=== PATIENT | female | born 1980 | race Caucasian/White ===

== ENCOUNTER 2018-02-07 11:08 | Inpatient (IN) ==
[2018-02-07 11:58] LABS: Basophils # 0.1 10*3/uL (0.0-0.2); Basophils % 0.2 % (0.0-0.8); Eosinophils # 0.2 10*3/uL (0.0-0.87); Eosinophils % 0.7 % (0.00-10.9); Immature Granulocytes % 0.9 %; Immature Granulocytes Absolute 0.22 #; Lymphocytes # 5.7 10*3/uL (1.4-4.0); Lymphocytes % 24.7 % (21.3-54.2); Mean Corpuscular HGB Conc 32.9 GM/DL (32-36); Mean Corpuscular Hemoglobin 31 PG (27-34); Mean Corpuscular Volume 94.4 FL (87-102); Mean Platelet Volume 11.4 FL (9.6-12.0); Monocytes # 1.6 10*3/uL (0.11-0.8); Monocytes % 6.7 % (1.7-12.7); Neutrophils # 15.5 10*3/uL (1.4-7.4); Neutrophils % 66.8 % (38.7-73.9); Platelet Count 259 T/CUMM (130-400); Red Cell Distribution Width 12.8 % (9.3-17.3); White Blood Count 23.2 T/CUMM (4-12)
[2018-02-07 12:07] LABS: Alanine Aminotransferase 15 U/L (13-56); Albumin 2.7 G/DL (3.4-5.0); Alkaline Phosphatase 71 U/L (45-117); Aspartate Amino Transferase 14 U/L (0-37); Bilirubin,Total < 0.39 MG/DL (0.2-1.0); Blood Urea Nitrogen 27 MG/DL (7-18); Calcium 8.2 MG/DL (8.5-10.1); Glucose 186 MG/DL (74-106); Potassium 3.7 MMOL/L (3.5-5.1); Sodium 136 MMOL/L (136-145); Total Protein 5.9 G/DL (6.4-8.3)
[2018-02-07 12:10] LABS: Lactic Acid 2.4 MMOL/L (0.4-2.0)
[2018-02-07] MEDS ORDERED: SODIUM CHLORIDE 0.9% 1,000 ML IV STA (12:12)
[2018-02-07 12:15] LABS: Hemoglobin 5.6 GM/DL (12.0-16.0)
[2018-02-07] MEDS ORDERED: SODIUM CHLORIDE 0.9% 1,000 ML IV PRN (12:37)
[2018-02-07 12:47] LABS: Anisocytosis 2+; Band Neutrophils 7 % (0-10); Lymphocytes 19 % (20-55); Platelet Estimate Normal; Polychromasia Slight; Segmented Neutrophils 68 % (50-85); Total Cells Counted 100
[2018-02-07] MEDS ORDERED: ONDANSETRON 4 MG/2 ML VIAL IV PRN (14:04)
[2018-02-07] MEDS ORDERED: cefTRIAXone 1,000 MG VIAL ONE (15:37)
[2018-02-07] MEDS: cefTRIAXone 2,000 MG in SYRINGE 1 EACH IV SCH (15:40)
[2018-02-07] MEDS ORDERED: INFLUENZA VIRUS VACCINE 0.5 ML SYRINGE IM ONE (16:32)
[2018-02-07] MEDS: SODIUM CHLORIDE 0.9% 1,000 ML IV SCH (17:17)
[2018-02-07] MEDS: AZITHROMYCIN INJ 500 MG in SODIUM CHLORIDE 0.9% 250 ML IV SCH (17:18)
[2018-02-07] MEDS: ALBUTEROL/IPRATROPIUM 3 ML NEB RESP TX SCH (19:11)
[2018-02-07] MEDS: ACETAMINOPHEN 325 MG TABLET PO PRN (20:25)
[2018-02-07] MEDS: guaiFENesin/DM ER 600-30 MG TABLET PO SCH (20:25)
[2018-02-07 23:20] LABS: Hematocrit 20.6 VOL% (35.7-47.0); Hemoglobin 6.6 GM/DL (12.0-16.0)
[2018-02-08] MEDS: ALBUTEROL/IPRATROPIUM 3 ML NEB RESP TX SCH ×4 (00:30→19:23)
[2018-02-08] MEDS ORDERED: SODIUM CHLORIDE 0.9% 1,000 ML IV PRN (01:27)
[2018-02-08] MEDS: ACETAMINOPHEN 325 MG TABLET PO PRN ×2 (05:04→16:39)
[2018-02-08 08:15] LABS: Hematocrit 31.6 VOL% (35.7-47.0); Hemoglobin 10.4 GM/DL (12.0-16.0)
[2018-02-08 08:16] LABS: Basophils # 0.1 10*3/uL (0.0-0.2); Basophils % 0.3 % (0.0-0.8); Basophils % 0.5 % (0.0-0.8); Eosinophils # 0.2 10*3/uL (0.0-0.87); Eosinophils % 1.5 % (0.00-10.9); Eosinophils % 1.6 % (0.00-10.9); Hematocrit 31.3 VOL% (35.7-47.0); Hematocrit 31.4 VOL% (35.7-47.0); Hemoglobin 10.4 GM/DL (12.0-16.0); Hemoglobin 10.5 GM/DL (12.0-16.0); Immature Granulocytes % 1.2 %; Immature Granulocytes % 1.4 %; Immature Granulocytes Absolute 0.12 #; Immature Granulocytes Absolute 0.15 #; Lymphocytes # 2.8 10*3/uL (1.4-4.0); Lymphocytes % 26.9 % (21.3-54.2); Mean Corpuscular HGB Conc 33.1 GM/DL (32-36); Mean Corpuscular HGB Conc 33.5 GM/DL (32-36); Mean Corpuscular Hemoglobin 30 PG (27-34); Mean Corpuscular Volume 88.4 FL (87-102); Mean Corpuscular Volume 89.5 FL (87-102); Mean Platelet Volume 10.7 FL (9.6-12.0); Mean Platelet Volume 10.8 FL (9.6-12.0); Monocytes # 0.8 10*3/uL (0.11-0.8); Monocytes % 7.9 % (1.7-12.7); Neutrophils # 6.4 10*3/uL (1.4-7.4); Neutrophils # 6.5 10*3/uL (1.4-7.4); Neutrophils % 61.6 % (38.7-73.9); Neutrophils % 62.1 % (38.7-73.9); Platelet Count 132 T/CUMM (130-400); Platelet Count 139 T/CUMM (130-400); Red Blood Count 3.51 MC/CUMM (3.8-5.5); Red Blood Count 3.54 MC/CUMM (3.8-5.5); Red Cell Distribution Width 13.9 % (9.3-17.3); White Blood Count 10.4 T/CUMM (4-12)
[2018-02-08 08:43] LABS: Calcium 8.2 MG/DL (8.5-10.1); Osmolality,Calculated 281.3 MOS/KG (273-304)
[2018-02-08 08:49] LABS: % Iron Saturation 81.8 % (18-50); Ferritin 46.5 ng/ml (8-252)
[2018-02-08 08:56] LABS: Folate 18.3 NG/ML (5.4-24.0); Vitamin B12 311 PG/ML (211-911)
[2018-02-08] MEDS ORDERED: DEXTROAMPHETAMINE PO SCH (09:00)
[2018-02-08] MEDS ORDERED: AMPHETAMINE PO SCH (09:00)
[2018-02-08] MEDS ORDERED: METOPROLOL SUCCINATE XL 50 MG TABLET PO SCH (09:00)
[2018-02-08] MEDS ORDERED: ASPIRIN EC 81 MG TABLET PO SCH (09:00)
[2018-02-08] MEDS ORDERED: PANTOPRAZOLE 40 MG TABLET PO SCH (09:00)
[2018-02-08] MEDS ORDERED: MAGNESIUM SULF RIDER 2 GM in PREMIX 1 EACH IV ONE (09:17)
[2018-02-08 09:26] LABS: Sedimentation Rate-Westergren 27 MM/HR (0-20)
[2018-02-08] MEDS: CYANOCOBALAMIN 1000 MCG/1 ML VIAL IM SCH (09:41)
[2018-02-08] MEDS: guaiFENesin/DM ER 600-30 MG TABLET PO SCH ×2 (09:52→20:46)
[2018-02-08 13:29] LABS: Hematocrit 34.1 VOL% (35.7-47.0); Hemoglobin 11.2 GM/DL (12.0-16.0)
[2018-02-08] MEDS: cefTRIAXone 2,000 MG in SYRINGE 1 EACH IV SCH (14:03)
[2018-02-08] MEDS: AZITHROMYCIN INJ 500 MG in SODIUM CHLORIDE 0.9% 250 ML IV SCH (16:40)
[2018-02-08 18:49] LABS: Hematocrit 28.3 VOL% (35.7-47.0); Hemoglobin 9.4 GM/DL (12.0-16.0)
[2018-02-08] MEDS: SODIUM CHLORIDE 0.9% 1,000 ML IV SCH ×2 (19:56→20:52)
[2018-02-08] MEDS: PANTOPRAZOLE 40 MG TABLET PO SCH (20:46)
[2018-02-09] MEDS: ALBUTEROL/IPRATROPIUM 3 ML NEB RESP TX SCH ×4 (00:35→19:58)
[2018-02-09 01:41] LABS: Hematocrit 27.2 VOL% (35.7-47.0); Hemoglobin 9.1 GM/DL (12.0-16.0)
[2018-02-09 07:29] LABS: Hematocrit 25.7 VOL% (35.7-47.0); Hemoglobin 8.5 GM/DL (12.0-16.0)
[2018-02-09 07:47] LABS: Osmolality,Calculated 278.3 MOS/KG (273-304)
[2018-02-09] MEDS: CHOLECALCIFEROL 1,000 UNIT TABLET PO SCH (09:41)
[2018-02-09] MEDS: AZITHROMYCIN 250 MG TABLET PO SCH (09:41)
[2018-02-09] MEDS: guaiFENesin/DM ER 600-30 MG TABLET PO SCH ×2 (09:41→21:28)
[2018-02-09] MEDS: PANTOPRAZOLE 40 MG TABLET PO SCH ×2 (09:42→21:27)
[2018-02-09] MEDS: CYANOCOBALAMIN 1000 MCG/1 ML VIAL IM SCH (09:42)
[2018-02-09 10:37] LABS: Hemoglobin A1 (Alkaline) 97.9 % (96.5-98.5)
[2018-02-09 10:38] LABS: Hemoglobin A2 (Alkaline) 2.1 % (1.5-3.5)
[2018-02-09 13:20] LABS: Hematocrit 25.6 VOL% (35.7-47.0); Hemoglobin 8.6 GM/DL (12.0-16.0)
[2018-02-09] MEDS: cefTRIAXone 2,000 MG in SYRINGE 1 EACH IV SCH (16:57)
[2018-02-09] MEDS: ACETAMINOPHEN 325 MG TABLET PO PRN (17:02)
[2018-02-09] MEDS: SODIUM CHLORIDE 0.9% 1,000 ML IV SCH (17:06)
[2018-02-09 19:17] LABS: Hematocrit 25.7 VOL% (35.7-47.0); Hemoglobin 8.8 GM/DL (12.0-16.0)
[2018-02-10] MEDS: ALBUTEROL/IPRATROPIUM 3 ML NEB RESP TX SCH ×4 (00:02→19:27)
[2018-02-10 06:33] LABS: Basophils % 0.2 % (0.0-0.8); Eosinophils # 0.1 10*3/uL (0.0-0.87); Eosinophils % 1.4 % (0.00-10.9); Hematocrit 25.9 VOL% (35.7-47.0); Hemoglobin 8.3 GM/DL (12.0-16.0); Immature Granulocytes % 0.9 %; Immature Granulocytes Absolute 0.07 #; Lymphocytes # 1.9 10*3/uL (1.4-4.0); Lymphocytes % 23.4 % (21.3-54.2); Mean Corpuscular Hemoglobin 29 PG (27-34); Mean Corpuscular Volume 91.2 FL (87-102); Monocytes # 0.7 10*3/uL (0.11-0.8); Monocytes % 9.2 % (1.7-12.7); Neutrophils # 5.2 10*3/uL (1.4-7.4); Neutrophils % 64.9 % (38.7-73.9); Platelet Count 179 T/CUMM (130-400); Red Blood Count 2.84 MC/CUMM (3.8-5.5); Red Cell Distribution Width 14.9 % (9.3-17.3)
[2018-02-10 06:48] LABS: Calcium 8.2 MG/DL (8.5-10.1); Osmolality,Calculated 280.1 MOS/KG (273-304); Potassium 3.5 MMOL/L (3.5-5.1)
[2018-02-10] MEDS ORDERED: MAGNESIUM SULF RIDER 2 GM in PREMIX 1 EACH IV ONE (07:29)
[2018-02-10] MEDS: guaiFENesin/DM ER 600-30 MG TABLET PO SCH ×2 (09:00→20:46)
[2018-02-10] MEDS: AZITHROMYCIN 250 MG TABLET PO SCH (09:00)
[2018-02-10] MEDS: CHOLECALCIFEROL 1,000 UNIT TABLET PO SCH (09:00)
[2018-02-10] MEDS ORDERED: PROPOFOL 200 MG/20 ML VIAL IV ONE (10:00)
[2018-02-10] MEDS ORDERED: LIDOCAINE 100 MG/5 ML SYRINGE ONE (10:00)
[2018-02-10] MEDS ORDERED: BISACODYL 5 MG TABLET PO ONE (12:00)
[2018-02-10] MEDS ORDERED: KETOROLAC 30 MG/1 ML VIAL IV ONE (12:56)
[2018-02-10] MEDS ORDERED: POLYETHYLENE GLYCOL POWDER 255 GM BOTTLE PO ONE (13:00)
[2018-02-10] MEDS: CYANOCOBALAMIN 1000 MCG/1 ML VIAL IM SCH (15:30)
[2018-02-10] MEDS: PANTOPRAZOLE 40 MG TABLET PO SCH ×2 (18:51→20:46)
[2018-02-10] MEDS: cefTRIAXone 2,000 MG in SYRINGE 1 EACH IV SCH (18:53)
[2018-02-10] MEDS ORDERED: CYANOCOBALAMIN 1000 MCG/1 ML VIAL IM ONE ×2 (19:30→21:00)
[2018-02-10] MEDS ORDERED: MAGNESIUM CITRATE 300 ML BOTTLE PO ONE (20:23)
[2018-02-10] MEDS: SODIUM CHLORIDE 0.9% 1,000 ML IV SCH (20:45)
[2018-02-10] MEDS ORDERED: AZITHROMYCIN 250 MG TABLET PO SCH (21:00)
[2018-02-11] MEDS: ALBUTEROL/IPRATROPIUM 3 ML NEB RESP TX SCH ×3 (00:19→13:30)
[2018-02-11 05:30] LABS: INR 0.9; PT Patient Result 9.4 SECS
[2018-02-11 07:47] LABS: Hematocrit 26.8 VOL% (35.7-47.0); Hemoglobin 8.9 GM/DL (12.0-16.0)
[2018-02-11] MEDS: PANTOPRAZOLE 40 MG TABLET PO SCH (08:09)
[2018-02-11] MEDS: guaiFENesin/DM ER 600-30 MG TABLET PO SCH (08:09)
[2018-02-11] MEDS: CHOLECALCIFEROL 1,000 UNIT TABLET PO SCH (08:10)
[2018-02-11] MEDS ORDERED: PROPOFOL 200 MG/20 ML VIAL IV ONE (10:19)
[2018-02-11] MEDS ORDERED: LIDOCAINE 100 MG/5 ML SYRINGE ONE (10:19)
[2018-02-11 12:11] VITALS: BP 129/84
== END 2018-02-11 16:35 | disposition home or self-care (01) | DRG 871 ==
LOC: N.ED 11:08 → N.EDINP 11:08 → SUATTDRO 14:04 → N.EDINP 15:48 → N.5E 16:18
PROVIDERS: ADMIT Hospitalist; ATTEND Internal Medicine Geriatric Medicine